=== PATIENT | male | born 1995 | race Caucasian/White ===

== ENCOUNTER 2018-08-05 20:56 | Emergency (ER) | payer OTHER ==
[2018-08-05 21:03] VITALS: BP 138/75; PULSE 74; RESP 18; TEMP 98
--- NOTE | 2018-08-05 21:32 | ED ---
Recheck HPI - General Source: patient Mode of arrival: ambulatory Limitations: no limitations <Tonja Hunter - Last Filed: 08/06/18 00:11> <Yanet Foster - Last Filed: 08/06/18 07:02> - General Chief Complaint: Recheck/Abnormal Lab/Rx Stated Complaint: poss exposure to lead-[facility] Time Seen by Provider: 08/05/18 21:07 - History of Present Illness Initial Comments: This a 22-year-old male no past medical history presents today for chief complaint of blood exposure. Patient states that for the past week he has been standing off all pain, he works a cargo. They sent the old pain chips off for testing, it came back positive for lead. Patient states that he didn't think he inhaled some. Patient denies entrance of breath, dyspnea on exertion, chest pain, dizziness, headache, confusion, agitation, or any type of altered mental state. Remainder ROS negative. Patient presents today for blood testing for lead. In addition cargo requires a 10 panel for drug testing. Pt VS stable upon arrival. (Tonja Hunter) - Related Data Home Medications Medication Instructions Recorded Confirmed No Known Home Medications 08/05/18 08/05/18 Allergies Allergy/AdvReac Type Severity Reaction Status Date / Time amoxicillin Allergy Unknown Verified 08/05/18 21:11 Childhood Review of Systems ROS Other: All systems not noted in ROS Statement are negative. Constitutional: Denies: fever, chills ENT: Denies: ear pain, throat pain Respiratory: Denies: cough, dyspnea Cardiovascular: Denies: chest pain, palpitations Gastrointestinal: Denies: abdominal pain, nausea, vomiting Genitourinary: Denies: urgency, dysuria Musculoskeletal: Denies: back pain Skin: Denies: rash, lesions Neurological: Denies: headache, weakness, numbness, paresthesias, confusion, abnormal gait, vertigo <Tonja Hunter - Last Filed: 08/06/18 00:11> ROS Other: All systems not noted in ROS Statement are negative. <Yanet Foster - Last Filed: 08/06/18 07:02> ROS Statement: Those systems with pertinent positive or pertinent negative responses have been documented in the HPI. Past Medical History Past Medical History: No Reported History History of Any Multi-Drug Resistant Organisms: None Reported Additional Past Surgical History / Comment(s): shoulder Past Psychological History: No Psychological Hx Reported Smoking Status: Never smoker Past Alcohol Use History: None Reported Past Drug Use History: None Reported <Tonja Hunter Alek - Last Filed: 08/06/18 00:11> General Exam Limitations: no limitations <Tonja Hunter Alek - Last Filed: 08/06/18 00:11> <Yanet Foster - Last Filed: 08/06/18 07:02> - General Exam Comments Initial Comments: General: The patient is awake and alert, in no distress, and does not appear acutely ill. Eye: Pupils are equal, extra-ocular movements are intact. No nystagmus. There is normal conjunctiva bilaterally. No signs of icterus. Cardiovascular: There is a regular rate and rhythm. No murmur, rub or gallop is appreciated. Respiratory: Lungs are clear to auscultation, respirations are non-labored, breath sounds are equal. No wheezes, stridor, rales, or rhonchi. Gastrointestinal: Soft, non-distended, non-tender abdomen without masses or organomegaly noted. There is no rebound or guarding present. Musculoskeletal: Normal ROM, no tenderness. Strength 5/5. Sensation intact. Radial ulses equal bilaterally 2+. Neurological: A&O x 3. CN II-XII intact, There are no obvious motor or sensory deficits. Coordination appears grossly intact. Speech is normal. Skin: Skin is warm and dry and no rashes or lesions are noted. Psychiatric: Cooperative, appropriate mood & affect, normal judgment. (Mercedes Hunteryin Gaston) Vital Signs 08/05/18 20:59 Temperature 98 F Pulse Rate 74 Respiratory 18 Rate Blood Pressure 138/75 O2 Sat by Pulse 100 Oximetry Medical Decision Making <DaquansonyMercedesTonja L - Last Filed: 08/06/18 00:11> <Yanet Foster - Last Filed: 08/06/18 07:02> - Medical Decision Making Pt denies any symptomology of lead poisoning at this time. Pt denies snf exposure to lead. Pt had 10 panel drug testing and blood testing for lead level. pt will be notified of results. Case discussed with Dr. Foster, at this time we feel pt is stable for d/c with PCP f/u. Pt agreed with plan s/c in stable condition. (Tonja Hunter) I was available for consultation in the emergency department. The history and physical exam were done by the midlevel provider. I was consulted for this patient's care. I reviewed the case with the midlevel provider and based on their presentation of the patient, I agree with the assessment, medical decision making and plan of care as documented. In reviewing this chart there appears to be some dictation error - the concern is for lead exposure due to standing paint (Yanet Foster) Disposition Is patient prescribed a controlled substance at d/c from ED?: No Time of Disposition: 21:40 <Tonja Hunter - Last Filed: 08/06/18 00:11> <Yanet Foster - Last Filed: 08/06/18 07:02> Clinical Impression: Exposure to lead Disposition: HOME SELF-CARE Condition: Good Instructions: Lead Poisoning (ED) Additional Instructions: Please await results from blood work. Follow-up with primary care in 1-2 days. Please return to emergency room if the symptoms increase or worsen or for any other concerns. Referrals: None,Stated [Primary Care Provider] - 1-2 days
== END 2018-08-05 22:20 | disposition home or self-care (01) ==
LOC: EC 20:56
DX: Z57.5 Occupational exposure to toxic agents in other industries (principal); Z88.0 Allergy status to penicillin
CPT/HCPCS: 36415; 83655; 99283